=== PATIENT | female | born 1990 | race Caucasian/White ===

== ENCOUNTER 2021-07-29 07:03 | Emergency (ER) | payer MEDICAID ==
[~2021-07-29] VITALS: Ht 154.9 cm; Wt 81.8 kg
[~2021-07-29 07:03] MED LIST: DIVA-80 PO; FLUO-191 PO; GABA-1201 PO; MELA5TAB40 PO; NALT50TA PO; OLAN10TA22 PO; OMEG-135 PO
[2021-07-29] MEDS: SODIUM CHLORIDE 0.9% 1,000 ML IV ONE (07:50)
[2021-07-29] MEDS: KETOROLAC TROMETHAMINE 30 MG/ML VIAL IVP ONE (07:50)
[2021-07-29] MEDS: ONDANSETRON HCL 4 MG/2 ML VIAL IVP ONE (07:51)
[2021-07-29 08:15] LABS: BASOPHILS % (AUTO) 0.6 % (0.0-2.0); EOSINOPHILS % (AUTO) 0.6 % (1.0-6.0); HEMATOCRIT 35.6 % (36-46); LYMPHOCYTES # (AUTO) 1.8 K/uL (1.0-4.8); LYMPHOCYTES % (AUTO) 18.3 % (22.0-44.0); MEAN CORPUSCULAR HEMOGLOBIN 30.9 pg (26.0-34.0); MEAN CORPUSCULAR HGB CONC 33.7 G/dL (31.0-37.0); MEAN CORPUSCULAR VOLUME 92 fL (80-100); MONOCYTES # (AUTO) 0.3 K/uL (0.1-1.0); MONOCYTES % (AUTO) 3.2 % (2.0-9.0); NEUTROPHILS # (AUTO) 7.6 K/uL (1.8-7.7); NEUTROPHILS % (AUTO) 77.3 % (40.0-70.0); PLATELET COUNT (AUTO) 238 K/uL (150-450); RED BLOOD CELL COUNT(AUTO) 3.89 MIL/uL (4.00-5.20); RED CELL DISTRIBUTION WIDTH 13.6 % (11.5-14.5)
[2021-07-29 08:28] LABS: ANION GAP 10 mmol/L (8-16); CALCIUM, TOTAL 8.8 mg/dL (8.8-10.5); CARBON DIOXIDE 25 mmol/L (22-29); CHLORIDE 104 mmol/L (98-107); CREATININE 0.76 mg/dL (0.60-1.30); GLOMERULAR FILTR. RATE CALC > 60 mL/min (>60); GLUCOSE,RANDOM 113 mg/dL (70-110); POTASSIUM 3.5 mmol/L (3.5-5.1); SODIUM SERUM 139 mmol/L (136-145); UREA NITROGEN, BLOOD 8 mg/dL (7-18)
[2021-07-29 08:39] LABS: ALANINE AMINOTRANSFERASE 24 U/L (12-78); ALBUMIN 3.5 g/dL (3.4-5.0); ALKALINE PHOSPHATASE 40 U/L (46-116); ASPARTATE AMINOTRANSFERASE 17 U/L (15-37); BILIRUBIN,TOTAL 0.3 mg/dL (0.1-1.0); HCG,QUANTITATIVE < 1 mIU/mL (0-6); LIPASE 100 U/L (73-393); TOTAL PROTEIN, SERUM 6.8 g/dL (6.4-8.2)
[2021-07-29] MEDS: LORazepam 2 MG/ML VIAL IVP ONE (08:39)
[2021-07-29] MEDS: HALOPERIDOL LACTATE 5 MG/ML VIAL IVP ONE (08:39)
[2021-07-29 09:20] VITALS: BP 103/54
== END 2021-07-29 09:44 | disposition home or self-care (01) ==
LOC: EMS 07:05
DX: R11.2 Nausea with vomiting, unspecified (principal); F10.20 Alcohol dependence, uncomplicated; F14.90 Cocaine use, unspecified, uncomplicated; F12.90 Cannabis use, unspecified, uncomplicated; F11.90 Opioid use, unspecified, uncomplicated
CPT/HCPCS: 36415; 80053; 83690; 84702; 85025; 93005; 96361; 96374; 96375; 99284; J1630; J1885; J2060; J2405